=== PATIENT | female | born 1975 | race Caucasian/White ===

== ENCOUNTER 2016-10-24 16:34 | Inpatient (IN) | payer MEDICARE, MEDICAID ==
[~2016-10-24] VITALS: Ht 154.9 cm; Wt 82.3 kg
[~2016-10-24 16:34] MED LIST: CELEXA; RISPERDAL; SEROQUEL
[2016-10-24] MEDS ORDERED: LORazepam 2 MG TABLET PO PRN (17:00)
[2016-10-24] MEDS ORDERED: HALOPERIDOL 5 MG TABLET PO PRN (17:00)
[2016-10-24] MEDS ORDERED: ZOLPIDEM TARTRATE 10 MG TABLET PO PRN (17:00)
[2016-10-24 18:02] VITALS: BP 125/74
[2016-10-24] MEDS: QUEtiapine FUMARATE 200 MG TABLET PO SCH (18:13)
[2016-10-24] MEDS: RisperiDONE 4 MG TABLET PO SCH (18:13)
[2016-10-24] MEDS ORDERED: CloNIDine HCL 0.1 MG TABLET PO PRN (19:00)
[2016-10-24] MEDS: BENZTROPINE MESYLATE 2 MG TABLET PO SCH (20:10)
[2016-10-24 21:06] LABS: APPEARANCE,URINE CLEAR (CLEAR); GLUCOSE, URINE (UA) NEGATIVE (NEGATIVE); KETONES,URINE NEGATIVE (NEGATIVE); LEUKOCYTE ESTERASE ,URINE NEGATIVE (NEGATIVE); OCCULT BLOOD,URINE NEGATIVE (NEGATIVE); PROTEIN,URINE NEGATIVE (NEGATIVE)
[2016-10-24 21:10] LABS: ADD UA MICROSCOPIC NO
[2016-10-25 06:56] LABS: EOSINOPHILS % (AUTO) 3.2 % (1.0-6.0); HEMATOCRIT 36.4 % (36-46); HEMOGLOBIN 12.3 g/dL (12.0-16.0); LYMPHOCYTES # (AUTO) 2.7 K/uL (1.0-4.8); LYMPHOCYTES % (AUTO) 44.8 % (22.0-44.0); MEAN CORPUSCULAR HEMOGLOBIN 31.8 pg (26.0-34.0); MEAN CORPUSCULAR HGB CONC 33.7 G/dL (31.0-37.0); MEAN CORPUSCULAR VOLUME 94 fL (80-100); MONOCYTES # (AUTO) 0.5 K/uL (0.1-1.0); MONOCYTES % (AUTO) 8.1 % (2.0-9.0); NEUTROPHILS # (AUTO) 2.6 K/uL (1.8-7.7); NEUTROPHILS % (AUTO) 42.9 % (40.0-70.0); PLATELET COUNT (AUTO) 211 K/uL (150-450); RED BLOOD CELL COUNT(AUTO) 3.86 MIL/uL (4.00-5.20); RED CELL DISTRIBUTION WIDTH 12.2 % (11.5-14.5)
[2016-10-25 07:19] LABS: LITHIUM < 0.20 mmol/L (0.60-1.20)
[2016-10-25 07:31] LABS: ALANINE AMINOTRANSFERASE 20 U/L (12-78); ALBUMIN 3.6 g/dL (3.4-5.0); ANION GAP 8 mmol/L (8-16); ASPARTATE AMINOTRANSFERASE 13 U/L (15-37); BILIRUBIN,TOTAL 0.1 mg/dL (0.1-1.0); CALCIUM, TOTAL 8.4 mg/dL (8.8-10.5); CARBON DIOXIDE 27 mmol/L (22-29); CHLORIDE 108 mmol/L (98-107); CHOL/HDL RATIO 3.8 (3.9-5.7); CREATININE 0.94 mg/dL (0.60-1.30); GLOMERULAR FILTR. RATE CALC > 60 mL/min (>60); POTASSIUM 3.7 mmol/L (3.5-5.1); SODIUM SERUM 143 mmol/L (136-145); TOTAL PROTEIN, SERUM 6.8 g/dL (6.4-8.2); UREA NITROGEN, BLOOD 17 mg/dL (7-18)
[2016-10-25 07:32] LABS: THYROID STIMULATING HORMONE 1.79 uIU/mL (0.36-3.74)
[2016-10-25] MEDS: RisperiDONE 4 MG TABLET PO SCH ×2 (08:59→16:42)
[2016-10-25] MEDS: QUEtiapine FUMARATE 200 MG TABLET PO SCH ×2 (08:59→17:00)
[2016-10-25 09:00] VITALS: BP 117/85
[2016-10-25] MEDS: CITALOPRAM HYDROBROMIDE 20 MG TABLET PO SCH (09:00)
[2016-10-25] MEDS ORDERED: IBUPROFEN 400 MG TABLET PO PRN (18:45)
[2016-10-25] MEDS ORDERED: ACETAMINOPHEN 325 MG TABLET PO PRN (18:45)
[2016-10-25] MEDS: BENZTROPINE MESYLATE 2 MG TABLET PO SCH (21:07)
[2016-10-25 21:32] VITALS: BP 116/79
[2016-10-26] MEDS: RisperiDONE 4 MG TABLET PO SCH ×2 (08:25→16:35)
[2016-10-26] MEDS: QUEtiapine FUMARATE 200 MG TABLET PO SCH ×2 (08:25→16:35)
[2016-10-26] MEDS: CITALOPRAM HYDROBROMIDE 20 MG TABLET PO SCH (08:25)
[2016-10-26 08:30] VITALS: BP 121/82
[2016-10-26] MEDS: BENZTROPINE MESYLATE 2 MG TABLET PO SCH (20:14)
[2016-10-26 21:40] VITALS: BP 130/71
[2016-10-27 08:30] VITALS: BP 126/75
[2016-10-27] MEDS: QUEtiapine FUMARATE 200 MG TABLET PO SCH ×2 (09:51→16:11)
[2016-10-27] MEDS: CITALOPRAM HYDROBROMIDE 20 MG TABLET PO SCH (09:51)
[2016-10-27] MEDS: RisperiDONE 4 MG TABLET PO SCH ×2 (09:51→16:11)
[2016-10-27 16:50] VITALS: BP_SYST 148
[2016-10-27] MEDS: BENZTROPINE MESYLATE 2 MG TABLET PO SCH (20:08)
[2016-10-28] MEDS: QUEtiapine FUMARATE 200 MG TABLET PO SCH ×2 (08:58→16:14)
[2016-10-28] MEDS: RisperiDONE 4 MG TABLET PO SCH ×2 (08:58→16:14)
[2016-10-28] MEDS: CITALOPRAM HYDROBROMIDE 20 MG TABLET PO SCH (08:58)
[2016-10-28 10:41] VITALS: BP 119/75
[2016-10-28] MEDS: BENZTROPINE MESYLATE 2 MG TABLET PO SCH (20:17)
[2016-10-28 22:12] VITALS: BP 116/83
[2016-10-29] MEDS: QUEtiapine FUMARATE 200 MG TABLET PO SCH (08:20)
[2016-10-29] MEDS: CITALOPRAM HYDROBROMIDE 20 MG TABLET PO SCH (08:20)
[2016-10-29] MEDS: RisperiDONE 4 MG TABLET PO SCH (08:20)
[2016-10-29] MEDS ORDERED: QUET200T PO (08:50)
[2016-10-29] MEDS ORDERED: RISP4 PO (08:50)
[2016-10-29] MEDS ORDERED: CITA20TA9 PO (08:52)
[2016-10-29] MEDS ORDERED: BENZ2TAB10 PO (08:52)
[2016-10-29 13:14] VITALS: BP 122/77
== END 2016-10-29 14:15 | disposition home or self-care (01) | DRG 885 ==
LOC: 3EX 16:45 → UNDOADMIN 17:37
PROVIDERS: ADMIT Psychiatry & Neurology Psychiatry; ATTEND Psychiatry & Neurology Psychiatry
DX: F25.9 Schizoaffective disorder, unspecified (principal); I10 Essential (primary) hypertension; D64.9 Anemia, unspecified; F32.9 Major depressive disorder, single episode, unspecified; Z85.3 Personal history of malignant neoplasm of breast; Z79.899 Other long term (current) drug therapy
CPT/HCPCS: 80307; 82728; 83540; 83550; 84436; 84439; 84443

== ENCOUNTER 2022-04-04 15:50 | Emergency (ER) | payer MEDICARE, OTHER ==
[~2022-04-04] VITALS: Ht 157.5 cm; Wt 97.7 kg
[~2022-04-04 15:50] MED LIST changes: +BENZ2TAB76 PO; -CELEXA; +CITA-144 PO; +QUET200T PO; +RISP4TAB73 PO; -RISPERDAL; -SEROQUEL
[2022-04-04] MEDS ORDERED: MIRA50TA PO (15:53)
[2022-04-04 16:44] LABS: BASOPHILS % (AUTO) 1.1 % (0.0-2.0); HEMATOCRIT 33.3 % (36-46); HEMOGLOBIN 11.4 g/dL (12.0-16.0); LYMPHOCYTES # (AUTO) 1.8 K/uL (1.0-4.8); LYMPHOCYTES % (AUTO) 27.4 % (22.0-44.0); MEAN CORPUSCULAR HEMOGLOBIN 31.6 pg (26.0-34.0); MEAN CORPUSCULAR HGB CONC 34.3 G/dL (31.0-37.0); MEAN CORPUSCULAR VOLUME 92 fL (80-100); MONOCYTES # (AUTO) 0.7 K/uL (0.1-1.0); MONOCYTES % (AUTO) 10.5 % (2.0-9.0); NEUTROPHILS # (AUTO) 3.8 K/uL (1.8-7.7); PLATELET COUNT (AUTO) 228 K/uL (150-450); RED BLOOD CELL COUNT(AUTO) 3.62 MIL/uL (4.00-5.20); RED CELL DISTRIBUTION WIDTH 12.1 % (11.5-14.5)
[2022-04-04 16:54] LABS: ANION GAP 9 mmol/L (8-16); CALCIUM, TOTAL 9.1 mg/dL (8.8-10.5); CARBON DIOXIDE 26 mmol/L (22-29); CHLORIDE 101 mmol/L (98-107); CREATININE 1.07 mg/dL (0.60-1.30); GLUCOSE,RANDOM 102 mg/dL (70-110); POTASSIUM 3.6 mmol/L (3.5-5.1); SODIUM SERUM 136 mmol/L (136-145); UREA NITROGEN, BLOOD 12 mg/dL (7-18)
[2022-04-04 16:56] LABS: GLOMERULAR FILTR. RATE CALC 55 mL/min (>60)
[2022-04-04 17:10] LABS: ALANINE AMINOTRANSFERASE 23 U/L (12-78); ALBUMIN 3.7 g/dL (3.4-5.0); ALKALINE PHOSPHATASE 94 U/L (46-116); ASPARTATE AMINOTRANSFERASE 16 U/L (15-37); BILIRUBIN,TOTAL 0.3 mg/dL (0.1-1.0); HCG,QUANTITATIVE 3 mIU/mL (0-6); THYROID STIMULATING HORMONE 0.85 uIU/mL (0.36-3.74)
[2022-04-04 17:43] LABS: COVID AG,FIA SOURCE NASOPHARYNGEAL
[2022-04-04] MEDS ORDERED: DiphenhydrAMINE HCL 25 MG CAPSULE PO ONE (18:15)
[2022-04-04] MEDS ORDERED: HALOPERIDOL 5 MG TABLET PO ONE (18:15)
[2022-04-04 19:44] LABS: APPEARANCE,URINE CLEAR (CLEAR); BILIRUBIN,URINE NEGATIVE (NEGATIVE); GLUCOSE, URINE (UA) NEGATIVE (NEGATIVE); KETONES,URINE NEGATIVE (NEGATIVE); LEUKOCYTE ESTERASE ,URINE LARGE (NEGATIVE); NITRATE,URINE NEGATIVE (NEGATIVE); OCCULT BLOOD,URINE NEGATIVE (NEGATIVE); PROTEIN,URINE NEGATIVE (NEGATIVE); SPECIFIC GRAVITIY, URINE 1.006 (1.003-1.030); UROBILINOGEN,URINE <=1.0 mg/dL (<=1.0)
[2022-04-04 19:54] LABS: AMPHET/METH SCREEN,URINE NEGATIVE (NEGATIVE); BARBITURATE SCREEN, URINE NEGATIVE (NEGATIVE); BENZODIAZEPINES SCREEN,URINE NEGATIVE (NEGATIVE); CANNABINOID SCREEN,URINE NEGATIVE (NEGATIVE); COCAINE SCREEN,URINE NEGATIVE (NEGATIVE); METHADONE SCREEN, URINE NEGATIVE (NEGATIVE); OPIATE SCREEN,URINE NEGATIVE (NEGATIVE); PHENCYCLIDINE SCREEN,URINE NEGATIVE (NEGATIVE)
[2022-04-04 19:58] LABS: BACTERIA,URINE None Seen /HPF (None Seen); RBC,URINE None Seen /HPF (0-2); SQUAMOUS EPITHELIAL CELL,UR Rare /LPF (None Seen)
[2022-04-04] MEDS ORDERED: NITROFURANTOIN MONOHYD/M-CRYST 100 MG CAPSULE [MACROBID] PO ONE (20:15)
[2022-04-04] MEDS ORDERED: NITR-75 PO (20:22)
[2022-04-04 20:44] VITALS: BP 144/94
== END 2022-04-04 20:50 | disposition home or self-care (01) ==
LOC: EMS 15:50
DX: F20.9 Schizophrenia, unspecified (principal); N39.0 Urinary tract infection, site not specified; Z20.822 Contact with and (suspected) exposure to COVID-19
CPT/HCPCS: 99284; 87426; 80053; 84443; 84702; 85025; 36415; 87086; 80307; 81001; G0480